=== PATIENT | female | born 1960 | race Caucasian/White ===

== ENCOUNTER 2018-03-07 20:35 | Emergency (ER) | payer BC, OTHER ==
[~2018-03-07] VITALS: Ht 157.5 cm; Wt 56.7 kg
[2018-03-07] MEDS ORDERED: ALPRAZOLAM 0.5 MG TABLET (20:47)
[2018-03-07] MEDS ORDERED: NITR100C11 PO (20:47)
--- NOTE | 2018-03-07 21:00 | NUR ---
Patient states she was at [facility] severals days ago and had IV hep lock placed on right forearm. Here for hematoma. Capillary refill less than 3 second.
--- NOTE | 2018-03-07 21:06 | NUR ---
Dr Kyle into eval patient
--- NOTE | 2018-03-07 21:21 | NUR ---
Dr Kyle gave verbale discharge to patient and
[2018-03-07 21:28] VITALS: BP 138/98
== END 2018-03-07 21:29 | disposition other institution (70) ==
LOC: ER 20:38
DX: S60.211A Contusion of right wrist, initial encounter (principal); Z79.899 Other long term (current) drug therapy; X58.XXXA Exposure to other specified factors, initial encounter; Y93.89 Activity, other specified; Y92.89 Other specified places as the place of occurrence of the external cause; Y99.8 Other external cause status
CPT/HCPCS: 99281; A4663